=== PATIENT | male | born 1995 ===

== ENCOUNTER 2021-09-12 12:45 | Emergency (ER) | payer OTHER, SELFPAY ==
[2021-09-12 13:13] VITALS: BP 132/73; PULSE 66; RESP 16; TEMP 36.8; O2SAT 100
--- NOTE | 2021-09-12 13:54 | ED.GENADULT ---
HPI - General Adult General Chief complaint: Upper Respiratory Infection Stated complaint: Cough,Sore Throat,Headache History of Present Illness HPI narrative: 26 Y/O CM presents to the [facility] via [facility] for an evaluation of covid-19 symptoms that have been present x1 day. Additionallky, he reports intermitttent frontal headache, nasal congestion, non-productive, dry cough, and runny nose. Denies taking otc meds for symptoms. Nothing improves or worsens sx. He is fully vaccinated against covid. Related Data Allergies Allergy/AdvReac Type Severity Reaction Status Date / Time No Known Allergies Allergy Verified 09/12/21 14:26 Review of Systems Review of Systems: Denies history of COPD, bronchitis, asthma, and pneumonia. Denies current/past tobacco use. Pertinent negatives: fever, sweats, chills, change in appetite, fatigue, skin color changes, severe persistent headache, dizziness, lymphadenopathy, sinus problems, ear pain/drainage, sore throat, chest pain, heart murmurs, heart palpitations, shortness of breath, wheezing, cyanosis, hemoptysis, hoarseness, orthopnea, pleuritic pain, nausea, vomiting, diarrhea, and myalgias. PMFSH Comments I have reviewed and agree with the patient's past medical, surgical, social, and family hx as documented by the RN. There is no relevant family history pertinent to the presenting complaint. Exam Narrative: GENERAL: Well-appearing, well-nourished, and in no acute distress. HEAD: Normocephalic, atraumatic. No sinus tenderness or facial swelling appreciated. EYES: PERRLA and EOMI. No evidence of erythema, swelling, or drainage. ENT: Bilateral external ears and ear canals normal. Bilateral TMs are normal.No TM perforation. Scant amount of rhinorrhea noted to bilat nares. Nares clear or epistaxis. Bilateral turbinates without erythema/ swelling. Mucous membranes moist and pink. Uvula is midline without erythema and swelling. No evidence of petechial rash, cobblestoning, lesions, ulcers, erythema, swelling, exudates, peritonsillar abscess, tenting, or drooling. Breath odor and voice normal. NECK: Supple. No Lymphadenopathy or nuchal rigidity appreciated. CHEST: Bilateral lung mancilla are clear to auscultation. No respiratory distress. No evidence of cough or pleuritic cp upon examination. HEART: Regular rate and rhythm. No murmur, gallop, or rub heard. EXTREMITIES: Normal range of motion. No edema. SKIN: Warm, dry, no rash. NEURO: No focal deficits. Alert and oriented x3. Course Course Level of Care: Express Care Visit Vital Signs Vital signs: Vital Signs Temperature 98.3 F 09/12/21 13:13 Pulse Rate 66 09/12/21 13:13 Respiratory Rate 16 09/12/21 13:13 Blood Pressure 132/73 09/12/21 13:13 Pulse Oximetry 100 09/12/21 13:13 Oxygen Delivery Room Air 09/12/21 13:13 Temperature 98.3 F 09/12/21 13:13 Pulse Rate 66 09/12/21 13:13 Respiratory Rate 16 09/12/21 13:13 Blood Pressure 132/73 09/12/21 13:13 Pulse Oximetry 100 09/12/21 13:13 Oxygen Delivery Room Air 09/12/21 13:13 reviwed Medical Decision Making Differential Diagnosis Differential Diagnosis: Allergic rhinitis, ABRS, acute viral sinusitis, strep pharyngitis, nasopharyngitis, bronchitis, pneumonia, AOM, otitis externa, viral URI, influenza, covid-19 Vital Signs Vital Signs: Vital Signs Temperature 98.3 F 09/12/21 13:13 Pulse Rate 66 09/12/21 13:13 Respiratory Rate 16 09/12/21 13:13 Blood Pressure 132/73 09/12/21 13:13 Pulse Oximetry 100 09/12/21 13:13 Oxygen Delivery Room Air 09/12/21 13:13 Temperature 98.3 F 09/12/21 13:13 Pulse Rate 66 09/12/21 13:13 Respiratory Rate 16 09/12/21 13:13 Blood Pressure 132/73 09/12/21 13:13 Pulse Oximetry 100 09/12/21 13:13 Oxygen Delivery Room Air 09/12/21 13:13 Reviewed Lab Data Lab results narrative: Rapid COVID-positive; rapid strep negative Labs: Lab Results 09/12/21 Range/Units 14:00
== END 2021-09-12 14:30 | disposition home or self-care (01) ==
PROVIDERS: Emergency Provider Nurse Practitioner Family
DX: U07.1 COVID-19 (principal)
CPT/HCPCS: 87081; 87426; 87880; 99203; C9803; G0463